=== PATIENT | male | born 1960 | race American Indian/Alaskan Native ===

== ENCOUNTER 2021-12-29 10:24 | Emergency (ER) | payer MEDICARE ==
[2021-12-29 12:38] LABS: Bacteria,Urine 1+ /HPF (Negative)
[2021-12-29 12:40] LABS: Basophils % (Auto) 0.5 % (0.0-1.8); Eosinophils % (Auto) 0.5 % (0.0-4.3); Hematocrit 35.8 % (35.5-45.6); Hemoglobin 11.9 gm/dl (11.8-15.2); Lymphocytes # (Auto) 1.3 K/mm3 (1.2-5.4); Lymphocytes % (Auto) 15.2 % (13.4-35.0); Mean Corpuscular HGB Conc 33 % (32-34); Mean Corpuscular Volume 85 fl (84-94); Monocytes # (Auto) 0.7 K/mm3 (0.0-0.8); Platelet Count 211 K/mm3 (140-440); Red Blood Count 4.23 M/mm3 (3.65-5.03); Red Cell Distribution Width 14.9 % (13.2-15.2)
[2021-12-29 12:52] LABS: Bilirubin,Urine Negative (Negative); Blood,Urine Negative (Negative); Color,Urine Colorless (Yellow); Protein,Urine <15 mg/dL mg/dL (Negative); Urobilinogen,Urine < 2.0 mg/dL (<2.0)
[2021-12-29 13:01] LABS: Albumin 4.4 g/dL (3.9-5); Calcium 9.3 mg/dL (8.4-10.2)
--- NOTE | 2021-12-29 13:57 | Emergency Department Report ---
ED Psych HPI - General Chief Complaint: Psych Stated Complaint: AMS Time Seen by Provider: 12/29/21 11:07 Source: patient Mode of arrival: Ambulatory - History of Present Illness Initial Comments: Patient is a 61-year-old male who presents with psychosis. Patient was brought in by EMS due to having a psychotic episode. Patient has no suicidal or homicidal ideation. However he is [place] to the base and attempting to eat soap. Patient is hyperverbal but not aggressive at the moment. Patient has a history of schizophrenia. Further history is limited due to patient's condition - Related Data Home Medications Medication Instructions Recorded Confirmed Last Taken Benztropine [Cogentin] 1 mg PO DAILY 12/29/21 12/29/21 Unknown Ferrous Sulfate [Iron 325 MG] 325 mg PO DAILY 12/29/21 12/29/21 Unknown Irbesartan [Avapro] 150 mg PO DAILY 12/29/21 12/29/21 Unknown Metoprolol [Lopressor TAB] 50 mg PO BID 12/29/21 12/29/21 Unknown Oxybutynin [Ditropan] 5 mg PO BID 12/29/21 12/29/21 Unknown Paliperidone [Invega] 6 mg PO DAILY 12/29/21 12/29/21 Unknown Quetiapine Fumarate [SEROquel] 400 mg PO DAILY 12/29/21 12/29/21 Unknown traZODone [Desyrel] 50 mg PO QAM 12/29/21 12/29/21 Unknown traZODone [Desyrel] 100 mg PO QHS PRN 12/29/21 12/29/21 Unknown Allergies Allergy/AdvReac Type Severity Reaction Status Date / Time No Known Allergies Allergy Unverified 12/29/21 10:46 ED Review of Systems ROS: Stated complaint: AMS Other details as noted in HPI Constitutional: denies: chills, fever Eyes: denies: eye pain, eye discharge, vision change ENT: denies: ear pain, throat pain Respiratory: denies: cough, shortness of breath, wheezing Cardiovascular: denies: chest pain, palpitations Endocrine: no symptoms reported Gastrointestinal: denies: abdominal pain, nausea, diarrhea Genitourinary: denies: urgency, dysuria Musculoskeletal: denies: back pain, joint swelling, arthralgia Skin: denies: rash, lesions Neurological: denies: headache, weakness, paresthesias Psychiatric: as per HPI. denies: anxiety, depression Hematological/Lymphatic: denies: easy bleeding, easy bruising ED Past Medical Hx - Social History Smoking Status: Never Smoker Substance Use Type: None - Medications Home Medications: Home Medications Medication Instructions Recorded Confirmed Last Taken Type Benztropine [Cogentin] 1 mg PO DAILY 12/29/21 12/29/21 Unknown History Ferrous Sulfate [Iron 325 MG] 325 mg PO DAILY 12/29/21 12/29/21 Unknown History Irbesartan [Avapro] 150 mg PO DAILY 12/29/21 12/29/21 Unknown History Metoprolol [Lopressor TAB] 50 mg PO BID 12/29/21 12/29/21 Unknown History Oxybutynin [Ditropan] 5 mg PO BID 12/29/21 12/29/21 Unknown History Paliperidone [Invega] 6 mg PO DAILY 12/29/21 12/29/21 Unknown History Quetiapine Fumarate [SEROquel] 400 mg PO DAILY 12/29/21 12/29/21 Unknown History traZODone [Desyrel] 50 mg PO QAM 12/29/21 12/29/21 Unknown History traZODone [Desyrel] 100 mg PO QHS PRN 12/29/21 12/29/21 Unknown History ED Physical Exam - General Limitations: No Limitations General appearance: alert, in no apparent distress - Head Head exam: Present: atraumatic, normocephalic - Eye Eye exam: Present: normal appearance - ENT ENT exam: Present: mucous membranes moist - Neck Neck exam: Present: normal inspection - Respiratory Respiratory exam: Present: normal lung sounds bilaterally. Absent: respiratory distress - Cardiovascular Cardiovascular Exam: Present: regular rate, normal rhythm. Absent: systolic murmur, diastolic murmur, rubs, gallop - GI/Abdominal GI/Abdominal exam: Present: soft, normal bowel sounds - Rectal Rectal exam: Present: deferred - Extremities Exam Extremities exam: Present: normal inspection - Back Exam Back exam: Present: normal inspection - Neurological Exam Neurological exam: Present: alert, oriented X3 - Psychiatric Psychiatric exam: Present: other (psychotic and hyperverbal ) - Skin Skin exam: Present: warm, dry, intact, normal color. Absent: rash ED Course Vital Signs 12/29/21 12/29/21 10:44 12:04 Temperature 98.3 F Pulse Rate 96 H Respiratory 20 Rate Blood Pressure 113/71 [Left] O2 Sat by Pulse 96 96 Oximetry ED Medical Decision Making - Lab Data Result diagrams: 12/29/21 12:08 12/29/21 12:08 Lab Results 12/29/21 12/29/21 12/29/21 Range/Units 11:26 12:08 12:08 WBC 8.4 (4.5-11.0) K/mm3 RBC 4.23 (3.65-5.03) M/mm3 Hgb 11.9 (11.8-15.2) gm/dl Hct 35.8 (35.5-45.6) % MCV 85 (84-94) fl MCH 28 (28-32) pg MCHC 33 (32-34) % RDW 14.9 (13.2-15.2) % Plt Count 211 (140-440) K/mm3 Lymph % (Auto) 15.2 (13.4-35.0) % [place] % (Auto) 8.0 H (0.0-7.3) % Eos % (Auto) 0.5 (0.0-4.3) % Baso % (Auto) 0.5 (0.0-1.8) % Lymph # (Auto) 1.3 (1.2-5.4) K/mm3 [place] # (Auto) 0.7 (0.0-0.8) K/mm3 Eos # (Auto) 0.0 (0.0-0.4) K/mm3 Baso # (Auto) 0.0 (0.0-0.1) K/mm3 Seg Neutrophils % 75.8 H (40.0-70.0) % Seg Neutrophils # 6.4 (1.8-7.7) K/mm3 Sodium 137 (137-145) mmol/L Potassium 4.1 (3.6-5.0) mmol/L Chloride 101.9 (98-107) mmol/L Carbon Dioxide 24 (22-30) mmol/L Anion Gap 15 mmol/L BUN 16 (9-20) mg/dL Creatinine 1.4 H (0.8-1.3) mg/dL Estimated GFR 52 ml/min BUN/Creatinine Ratio 11 % Glucose 91 (75-100) mg/dL Calcium 9.3 (8.4-10.2) mg/dL Total Bilirubin 0.40 (0.1-1.2) mg/dL AST 25 (5-40) units/L ALT 12 (7-56) units/L Alkaline Phosphatase 98 (35-129) units/L Total Protein 6.7 (6.3-8.2) g/dL Albumin 4.4 (3.9-5) g/dL Albumin/Globulin Ratio 1.9 % TSH (0.270-4.200) mlU/mL Urine Color Colorless (Yellow) Urine Turbidity Clear (Clear) Urine pH 5.0 (5.0-7.0) Ur Specific [place] 1.005 (1.003-1.030) Urine Protein <15 mg/dl (Negative) mg/dL Urine Glucose (UA) Negative (Negative) mg/dL Urine Ketones Negative (Negative) mg/dL Urine Blood Negative (Negative) Urine Nitrite Negative (Negative) Ur Reducing Substances Not Reportable Urine Bilirubin Negative (Negative) Urine Ictotest Not Reportable Urine Urobilinogen < 2.0 (<2.0) mg/dL Ur Leukocyte Esterase Small (Negative) Urine WBC (Auto) 9.0 H (0.0-6.0) /HPF Urine RBC (Auto) 1.0 (0.0-6.0) /HPF Urine Bacteria (Auto) 1+ (Negative) /HPF Salicylates (2.8-20.0) mg/dL Acetaminophen (10.0-30.0) ug/mL Valproic Acid (50-100) ug/mL 12/29/21 12/29/21 12/29/21 Range/Units 12:08 12:08 12:08 WBC (4.5-11.0) K/mm3 RBC (3.65-5.03) M/mm3 Hgb (11.8-15.2) gm/dl Hct (35.5-45.6) % MCV (84-94) fl MCH (28-32) pg MCHC (32-34) % RDW (13.2-15.2) % Plt Count (140-440) K/mm3 Lymph % (Auto) (13.4-35.0) % [place] % (Auto) (0.0-7.3) % Eos % (Auto) (0.0-4.3) % Baso % (Auto) (0.0-1.8) % Lymph # (Auto) (1.2-5.4) K/mm3 [place] # (Auto) (0.0-0.8) K/mm3 Eos # (Auto) (0.0-0.4) K/mm3 Baso # (Auto) (0.0-0.1) K/mm3 Seg Neutrophils % (40.0-70.0) % Seg Neutrophils # (1.8-7.7) K/mm3 Sodium (137-145) mmol/L Potassium (3.6-5.0) mmol/L Chloride (98-107) mmol/L Carbon Dioxide (22-30) mmol/L Anion Gap mmol/L BUN (9-20) mg/dL Creatinine (0.8-1.3) mg/dL Estimated GFR ml/min BUN/Creatinine Ratio % Glucose (75-100) mg/dL Calcium (8.4-10.2) mg/dL Total Bilirubin (0.1-1.2) mg/dL AST (5-40) units/L ALT (7-56) units/L Alkaline Phosphatase (35-129) units/L Total Protein (6.3-8.2) g/dL Albumin (3.9-5) g/dL Albumin/Globulin Ratio % TSH 0.738 (0.270-4.200) mlU/mL Urine Color (Yellow) Urine Turbidity (Clear) Urine pH (5.0-7.0) Ur Specific [place] (1.003-1.030) Urine Protein (Negative) mg/dL Urine Glucose (UA) (Negative) mg/dL Urine Ketones (Negative) mg/dL Urine Blood (Negative) Urine Nitrite (Negative) Ur Reducing Substances Urine Bilirubin (Negative) Urine Ictotest Urine Urobilinogen (<2.0) mg/dL Ur Leukocyte Esterase (Negative) Urine WBC (Auto) (0.0-6.0) /HPF Urine RBC (Auto) (0.0-6.0) /HPF Urine Bacteria (Auto) (Negative) /HPF Salicylates < 0.3 L (2.8-20.0) mg/dL Acetaminophen 5.0 L (10.0-30.0) ug/mL Valproic Acid < 2.8 L (50-100) ug/mL - Medical Decision Making Chief medical diagnosis: Psychosis Differential medical diagnosis schizoaffective disorder, substance-induced mood disorder we will get 1013 will get psych consult we will get blood work and will medically clear patient. Critical care attestation.: If time is entered above; I have spent that time in minutes in the direct care of this critically ill patient, excluding procedure time. ED Disposition Clinical Impression: Psychosis Qualifiers: Psychosis type: unspecified psychosis type Qualified Code(s): F29 - Unspecified psychosis not due to a substance or known physiological condition Disposition: [address] [place] [address] [facility]PITAL Is pt being admited?: No Does the pt Need Aspirin: No Condition: Stable
[2021-12-29] MEDS ORDERED: ZIPRASIDONE MESYLATE 20 MG VIAL IM ONE ×2 (14:33→14:34)
--- NOTE | 2021-12-29 14:34 | Consultation ---
History of Present Illness - Reason for Consult Consult date: 12/29/21 Reason for consult: psychosis - History of Present Psychiatric Illness The patient was seen today. His speech is garbled and he is difficult to understand. His speech is tangential. The patient is difficulty to follow. He is delusional and his thoughts are disorganized. The patient is talking about his father being Hitler. Then he says he was not born yesterday. He does say he suffers from depression. The patient says "what school did you go to." PAST PSYCHIATRIC HISTORY: Diagnoses: schizophrenia Unable to adequately assess PAST MEDICAL HISTORY: None reported Family Psychiatric History: None reported SOCIAL HISTORY Unable to obtain REVIEW OF SYSTEMS Unable to obtain MENTAL STATUS Unable to obtain Assessment Schizophrenia Treatment Plan 1013 Seroquel 400mg daily [place] 1mg po BID Trazodone 100mg po qhs Medical: per primary Disposition: Recommend acute psychiatric inpatient treatment Will follow. Thanks Case staffed with Dr. Washington Medications and Allergies Allergies Allergy/AdvReac Type Severity Reaction Status Date / Time No Known Allergies Allergy Unverified 12/29/21 10:46 Home Medications Medication Instructions Recorded Confirmed Last Taken Type Benztropine [Cogentin] 1 mg PO DAILY 12/29/21 12/29/21 Unknown History Ferrous Sulfate [Iron 325 MG] 325 mg PO DAILY 12/29/21 12/29/21 Unknown History Irbesartan [Avapro] 150 mg PO DAILY 12/29/21 12/29/21 Unknown History Metoprolol [Lopressor TAB] 50 mg PO BID 12/29/21 12/29/21 Unknown History Oxybutynin [Ditropan] 5 mg PO BID 12/29/21 12/29/21 Unknown History Paliperidone [Invega] 6 mg PO DAILY 12/29/21 12/29/21 Unknown History Quetiapine Fumarate [SEROquel] 400 mg PO DAILY 12/29/21 12/29/21 Unknown History traZODone [Desyrel] 50 mg PO QAM 12/29/21 12/29/21 Unknown History traZODone [Desyrel] 100 mg PO QHS PRN 12/29/21 12/29/21 Unknown History Mental Status Exam - Vital signs Last Vital Signs Temp 98.3 F 12/29/21 10:44 Pulse 96 H 12/29/21 10:44 Resp 20 12/29/21 10:44 BP 113/71 12/29/21 10:44 Pulse Ox 96 12/29/21 12:04 Results Result Diagrams: 12/29/21 12:08 12/29/21 12:08 Abnormal lab results 12/29/21 12/29/21 12/29/21 Range/Units 11:26 12:08 12:08 [place] % (Auto) 8.0 H (0.0-7.3) % Seg Neutrophils % 75.8 H (40.0-70.0) % Creatinine 1.4 H (0.8-1.3) mg/dL Urine WBC (Auto) 9.0 H (0.0-6.0) /HPF Salicylates (2.8-20.0) mg/dL Acetaminophen (10.0-30.0) ug/mL Valproic Acid (50-100) ug/mL 12/29/21 12/29/21 Range/Units 12:08 12:08 [place] % (Auto) (0.0-7.3) % Seg Neutrophils % (40.0-70.0) % Creatinine (0.8-1.3) mg/dL Urine WBC (Auto) (0.0-6.0) /HPF Salicylates < 0.3 L (2.8-20.0) mg/dL Acetaminophen 5.0 L (10.0-30.0) ug/mL Valproic Acid < 2.8 L (50-100) ug/mL All other labs normal.
[2021-12-29] MEDS ORDERED: NON-FORMULARY EACH (Quetiapine Fumarate [Seroquel] 400 MG Tablet) PO SCH (14:45)
[2021-12-29] MEDS: QUEtiapine 200 MG TAB PO SCH (15:16)
[2021-12-29] MEDS: BENZTROPINE 1 MG TAB PO SCH (15:16)
[2021-12-29 18:42] LABS: Amphetamine Screen,Urine Negative; Benzodiazepines Screen,Urine Negative; Cannabinoid Screen,Urine Negative; Cocaine Screen,Urine Negative; Methadone Screen,Urine Negative; Opiate Screen,Urine Negative
[2021-12-29] MEDS ORDERED: traZODone 100 MG TAB PO PRN (22:00)
[2021-12-30] MEDS: BENZTROPINE 1 MG TAB PO SCH (09:33)
[2021-12-30] MEDS: QUEtiapine 200 MG TAB PO SCH (09:33)
[2021-12-30 09:45] VITALS: BP 129/75
== END 2021-12-30 09:46 ==
LOC: EEVIPCON 10:24 → ED 10:24
DX: F29 Unspecified psychosis not due to a substance or known physiological condition (principal); Z20.822 Contact with and (suspected) exposure to COVID-19
CPT/HCPCS: 36415; 80053; 80164; 80307; 81001; 84443; 85025; 87086; 96372; 99285; J3486; U0003; 80320; G0480